=== PATIENT | female | born 1995 | race Two or more races ===

== ENCOUNTER 2016-06-06 22:32 | Emergency (ER) | payer MEDICAID ==
[~2016-06-06] VITALS: Ht 152.4 cm; Wt 44.5 kg
[~2016-06-06 22:32] MED LIST: LEVE500T20 PO
[2016-06-06 22:51] VITALS: BP 122/58
[2016-06-06 23:48] LABS: APPEARANCE,URINE CLEAR (CLEAR); BILIRUBIN,URINE NEGATIVE (NEGATIVE); BLOOD, URINE TRACE-INTA Ery/uL (NEGATIVE); COLOR,URINE YELLOW (YELLOW); KETONES,URINE NEGATIVE (NEGATIVE); LEUKOCYTE ESTERASE ,URINE NEGATIVE (NEGATIVE); NITRITE, URINE NEGATIVE (NEGATIVE); PROTEIN,URINE NEGATIVE (NEGATIVE); UGLUCOSE NEGATIVE (NEGATIVE); UROBILINOGEN,URINE 0.2 EU/dL (0.2)
[2016-06-06 23:52] LABS: PREGNANCY TEST URINE QUAL NEGATIVE (NEGATIVE)
[2016-06-07 00:03] LABS: ADD URINE CULTURE NO; BACTERIA,URINE None seen /HPF (None Seen); RBC,URINE NONE SEEN /HPF (0-2); SQUAMOUS EPITHELIAL CELL,UR Few /HPF (None Seen); WBC,URINE 0-2 /HPF (0-3)
[2016-06-07] MEDS ORDERED: CEFTRIAXONE 500 MG VIAL IM ONE (01:00)
[2016-06-08 21:13] LABS: *NEISSERIA GONORRHOEAE NAA Negative (Negative); CHLAMYDIA TRACHOMATIS NAA Negative (Negative)
== END 2016-06-07 01:22 | disposition home or self-care (01) ==
LOC: ER 22:32
DX: N76.0 Acute vaginitis (principal); G40.909 Epilepsy, unspecified, not intractable, without status epilepticus
CPT/HCPCS: 81001; 84703; 87086; 87210; 87491; 87591; 99284; A4606; Z7610; 81000-TC

== ENCOUNTER 2017-07-24 19:21 | Emergency (ER) | payer MEDICAID, OTHER ==
[~2017-07-24] VITALS: Ht 157.5 cm; Wt 47.6 kg
[2017-07-24 19:21] VITALS: BP 132/71
[2017-07-24] MEDS ORDERED: ACETAMINOPHEN 325 MG TABLET PO ONE (20:00)
[2017-07-24] MEDS ORDERED: ACETAMINOPHEN 325 MG TABLET ONE (20:09)
== END 2017-07-24 21:25 | disposition home or self-care (01) ==
LOC: ER 19:26
DX: S93.692A Other sprain of left foot, initial encounter (principal); S93.402A Sprain of unspecified ligament of left ankle, initial encounter; S93.505A Unspecified sprain of left lesser toe(s), initial encounter; G40.909 Epilepsy, unspecified, not intractable, without status epilepticus; X58.XXXA Exposure to other specified factors, initial encounter; Y93.89 Activity, other specified; Y92.89 Other specified places as the place of occurrence of the external cause; Y99.8 Other external cause status
CPT/HCPCS: 73600-TC; 73620-TC; A4606; Z7610

== ENCOUNTER 2020-05-31 04:48 | Emergency (ER) | payer OTHER ==
[~2020-05-31] VITALS: Ht 152.4 cm; Wt 49.9 kg
--- NOTE | 2020-05-31 05:00 | NUR ---
PT BIBSELF C/O NUMBNESS AND TINGLING OVER HER BODY SINCE 299. PT AAOX4 BREATHING EVENLY AND UNLABORED. PT STATES " IT FEELS LIKE ANTS OVER MY BODY". UPON ASSESSMENT PT NEUROLOGICALLY INTACT. SKIN WARM, DRY, AND INTACT. PT ATTACHED TO MONITOR AND POX. PT GIVEN BLANKET AND CALL LIGHT WITHIN REACH.
[2020-05-31] MEDS ORDERED: ONDANSETRON 4 MG TAB.RAPDIS ONE (05:17)
[2020-05-31] MEDS ORDERED: ONDANSETRON 4 MG TAB.RAPDIS SL ONE (05:30)
[2020-05-31 05:56] LABS: BASOPHILS % (AUTO) 0.5 % (0.0-2.0); HEMATOCRIT 35 % (33-45); HEMOGLOBIN 11.8 g/dL (11.5-14.8); LYMPHOCYTES % (AUTO) 31.8 % (20.0-44.0); MEAN CORPUSCULAR HGB CONC 34 g/dl (31.0-36.0); MEAN CORPUSCULAR VOLUME 87 fL (82-100); MONOCYTES # (AUTO) 0.5 /CMM (0.1-1.30); MONOCYTES % (AUTO) 8.6 % (2.0-12.0); NEUTROPHILS # (AUTO) 3.6 /CMM (1.8-8.9); NEUTROPHILS % (AUTO) 57.1 % (43.0-81.0); PLATELET COUNT (AUTO) 173 /CMM (150-450); RED BLOOD CELL COUNT(AUTO) 3.98 MIL/uL (4.0-5.2); WHITE BLOOD COUNT (AUTO) 6.3 K/uL (4.3-11.0)
[2020-05-31 06:01] LABS: CALCIUM, SERUM 8.7 mg/dL (8.5-10.1); CREATININE 0.7 mg/dL (0.6-1.3); POTASSIUM 3.9 mmol/L (3.5-5.1)
--- NOTE | 2020-05-31 06:24 | NUR ---
Patient discharged to home in stable condition. Written and verbal after care instructions given. Patient verbalizes understanding of instruction. Pt ambulatory with a steady gait
[2020-05-31 06:36] VITALS: BP 111/72
== END 2020-05-31 06:14 | disposition home or self-care (01) ==
LOC: ER 04:57
DX: R20.2 Paresthesia of skin (principal); R11.0 Nausea; G40.909 Epilepsy, unspecified, not intractable, without status epilepticus; F41.9 Anxiety disorder, unspecified; Z79.899 Other long term (current) drug therapy
CPT/HCPCS: 36415; 80048; 85025; 99283; Q0162

== ENCOUNTER 2020-06-10 20:33 | Emergency (ER) | payer OTHER ==
[~2020-06-10] VITALS: Ht 152.4 cm; Wt 49.9 kg
[2020-06-10 21:13] VITALS: BP 115/75
--- NOTE | 2020-06-10 21:27 | NUR ---
bibs from hme to er bed 6.aaox4. not in resp distress. talking in full sentences. ambulatory. came in for sorethroat and l ear pain since this morning when she woke up. she was also verbalizing that she had a fever and took ibuprophen earlier. provider is at bedside for eval. awaiting orders.
[2020-06-10] MEDS ORDERED: AMOX500C2 PO (21:35)
[2020-06-10] MEDS ORDERED: IBUP-1955 PO (21:35)
--- NOTE | 2020-06-10 21:50 | NUR ---
Patient discharged to home in stable condition. Written and verbal after care instructions given. Patient verbalizes understanding of instruction. Pt ambulatory with a steady gait
== END 2020-06-10 21:51 | disposition home or self-care (01) ==
LOC: ER 20:39
DX: J02.9 Acute pharyngitis, unspecified (principal); R59.0 Localized enlarged lymph nodes; G40.909 Epilepsy, unspecified, not intractable, without status epilepticus; Z79.899 Other long term (current) drug therapy